=== PATIENT | male | born 1960 | race Caucasian/White ===

== ENCOUNTER 2022-04-22 04:21 | Day surgery (SDC) | payer OTHER, BC ==
[2022-04-17 15:17] VITALS: BMI 27.0
[2022-04-22 08:37] VITALS: TEMP 97.5
[2022-04-22 09:23] VITALS: BP 107/65; PULSE 51; RESP 16
== END 2022-04-22 09:23 | disposition home or self-care (01) ==
LOC: JASU-ENDO 04:21
PROVIDERS: ATTEND Internal Medicine Gastroenterology
PROC: 0DBL8ZX Excision of Transverse Colon, Via Natural or Artificial Opening Endoscopic, Diagnostic (ICD-10-PCS; 2022-04-22)
PROC: 0DBP8ZX Excision of Rectum, Via Natural or Artificial Opening Endoscopic, Diagnostic (ICD-10-PCS; 2022-04-22)
PROC: 0DBM8ZX Excision of Descending Colon, Via Natural or Artificial Opening Endoscopic, Diagnostic (ICD-10-PCS; 2022-04-22)
PROC: 0DBK8ZX Excision of Ascending Colon, Via Natural or Artificial Opening Endoscopic, Diagnostic (ICD-10-PCS; principal; 2022-04-22 08:00)
DX: D12.2 Benign neoplasm of ascending colon (principal); K57.30 Diverticulosis of large intestine without perforation or abscess without bleeding; K59.89 Other specified functional intestinal disorders; Z87.19 Personal history of other diseases of the digestive system
CPT/HCPCS: 88305-TC

== ENCOUNTER 2022-05-06 04:41 | Day surgery (SDC) | payer BC, OTHER ==
[2022-05-01 15:10] VITALS: BMI 28.5
[2022-05-06] MEDS ORDERED: KETAMINE HCL 500 MG/10 ML VIAL ONE (07:16)
[2022-05-06] MEDS ORDERED: SIMETHICONE 40 MG/0.6 ML BOTTLE ONE (07:44)
[2022-05-06 08:30] VITALS: TEMP 97.1
[2022-05-06 09:18] VITALS: BP 116/78; PULSE 53; RESP 15
== END 2022-05-06 09:54 | disposition home or self-care (01) ==
LOC: JASU-ENDO 04:41
PROVIDERS: ATTEND Internal Medicine Gastroenterology
PROC: 0DB78ZX Excision of Stomach, Pylorus, Via Natural or Artificial Opening Endoscopic, Diagnostic (ICD-10-PCS; 2022-05-06)
PROC: 0DB68ZX Excision of Stomach, Via Natural or Artificial Opening Endoscopic, Diagnostic (ICD-10-PCS; 2022-05-06)
PROC: 0DB98ZX Excision of Duodenum, Via Natural or Artificial Opening Endoscopic, Diagnostic (ICD-10-PCS; principal; 2022-05-06 08:00)
DX: K31.7 Polyp of stomach and duodenum (principal); K29.50 Unspecified chronic gastritis without bleeding
CPT/HCPCS: 88305-TC; 88342-TC